=== PATIENT | female | born 1975 ===

== ENCOUNTER 2018-06-14 10:11 | Outpatient (CLI) | payer MEDICAID, SELFPAY ==
[2018-06-14 10:41] LABS: Absolute Basophil Count 0.04 k/cumm (0.0-0.2); Absolute Eosinophil Count 0.28 k/cumm (0.0-0.7); Absolute Lymphocyte Count 0.61 k/cumm (1.2-3.4); Absolute Monocyte Count 0.34 k/cumm (0.11-0.7); Absolute Neutrophil Count 0.56 k/cumm (1.2-6.7); Basophils % 2.2; Eosinophils % 15.3; HCT 38.6 % (36.0-46.0); HGB 13.1 g/dL (12.0-15.5); Lymphocytes % 33.3; Mean Corp. HGB Concentration 33.9 g/dL (32.0-36.0); Mean Corpuscular Hemoglobin 30.3 pg (27.0-33.0); Mean Corpuscular Volume 89.1 fL (80-95); Mean Platelet Volume 9.2 fL (8.0-11.0); Monocytes % 18.6; Neutrophils % 30.6; Platelet Count 200 x1000/uL (130-400); RBC 4.33 m/cumm (4.00-5.20); RBC Distribution Width 11.7 % (11.7-14.6)
[2018-06-14 10:52] LABS: ALT 31 U/L (12-78); AST 24 U/L (15-37); Albumin 3.8 g/dL (3.4-5.0); Alkaline Phosphatase 61 U/L (46-116); BUN 14 mg/dL (7-18); Bilirubin, Total 0.5 mg/dL (0.2-1.0); CREATININE 1.16 mg/dL (0.55-1.02); Chloride 100 mmol/L (98-107); Estimated GFR 50.99 (mL/min/1.73m2); Glucose 89 mg/dL (70-100); Potassium 3.8 mmol/L (3.5-5.1); Sodium 137 mmol/L (136-145); Total Protein 7.7 g/dL (6.4-8.2)
[2018-06-14 11:05] LABS: White Blood Cell Count 1.83 k/cumm (4.4-10.8)
[2018-06-14 11:06] LABS: Diff Comment Diff Reviewed; RBC Morphology Normal
== END 2018-06-14 10:31 ==
PROVIDERS: PCP Physician Assistant Medical; Visit Provider Internal Medicine Medical Oncology
DX: D70.8 Other neutropenia (principal)
CPT/HCPCS: 36415; 80053; 85025